=== PATIENT | female | born 1960 | race Caucasian/White ===

== ENCOUNTER 2025-04-17 18:22 | Inpatient (IN) | payer SELFPAY ==
[~2025-04-17] VITALS: Ht 154.9 cm; Wt 55.8 kg
[2025-04-17 18:24] VITALS: O2SAT 98
[2025-04-17] MEDS: SODIUM CHLORIDE 0.9% (SEPSIS BOLUS) IV ONE (19:48)
[2025-04-17 20:12] LABS: HEMATOCRIT. 43.5 % (36.0-48.0); HEMOGLOBIN. 14.6 g/dL (12.0-16.0); MEAN PLATELET VOLUME 9.2 fl (7.4-10.4); PLATELET 197 x1000/uL (130-400); RED BLOOD CELL COUNT 4.71 mill/uL (4.2-5.4); RED CELL DISTRIBUTION WIDTH 15.2 % (11.6-14.6)
[2025-04-17 20:27] LABS: CREATININE 1.0 mg/dL (0.6-1.0)
[2025-04-17 20:28] LABS: LYMPHOCYTES % MANUAL 3.0 % (20.0-60.0); MONOCYTES % MANUAL 4.0 % (2.0-8.0); NEUTROPHILS % MANUAL 93.0 % (45.0-75.0); PLATELET ESTIMATE NORMAL; TROPONIN I HIGH SENSITIVITY < 4 ng/L (3.0-34); UREA NITROGEN BLOOD 16 mg/dL (9-23)
[2025-04-17 20:29] LABS: ASPARTATE AMINOTRANSFERASE 85 IU/L (<34)
[2025-04-17 20:30] LABS: BILIRUBIN DIRECT 0.3 mg/dL (<=3.0); BILIRUBIN TOTAL 0.9 mg/dL (0.1-1.0); PROTEIN TOTAL 6.8 g/dL (6.0-8.3)
[2025-04-17 20:31] LABS: INR 1.0
[2025-04-17] MEDS: CEFTRIAXONE 1GM/50ML 50 ML IV ONE (20:37)
[2025-04-17] MEDS: ACETAMINOPHEN 500MG TABLET PO SCH (20:37)
[2025-04-17] MEDS: METHOCARBAMOL 500MG TABLET PO SCH (20:38)
[2025-04-17] MEDS: ONDANSETRON HCL 4MG/2ML INJ IV ONE (20:38)
[2025-04-17] MEDS: FAMOTIDINE 20MG/2ML VIAL IV ONE (20:38)
[2025-04-17] MEDS: IOHEXOL-350 100 ML BOTTLE ONE (22:53)
[2025-04-17] MEDS ORDERED: NOREPINEPHRINE 8MG/250ML PMX 250 ML IV PRN (23:00)
[2025-04-17] MEDS: NOREPINEPHRINE 8MG/250ML PMX 250 ML IV PRN (23:25)
[2025-04-18] VITALS (30 sets, daily range): BP systolic 55–151; BP diastolic 44–102; PULSE 76–114; RESP 16–36; TEMP 37.1–37.6; O2SAT 93–98
[2025-04-18 00:09] LABS: ASPARTATE AMINOTRANSFERASE 91 IU/L (<34); BILIRUBIN DIRECT 0.3 mg/dL (<=3.0); BILIRUBIN TOTAL 0.9 mg/dL (0.1-1.0); PROTEIN TOTAL 6.7 g/dL (6.0-8.3)
[2025-04-18] MEDS: SODIUM CHLORIDE 0.9% (SEPSIS BOLUS) IV ONE (00:20)
[2025-04-18 00:21] LABS: CLARITY URINE CLEAR (CLEAR); COLOR URINE YELLOW (YELLOW); GLUCOSE URINE NEGATIVE (NEGATIVE); KETONES URINE NEGATIVE (NEGATIVE); LEUKOCYTE ESTERASE URINE 2+ (NEGATIVE); NITRITE URINE NEGATIVE (NEGATIVE); OCCULT BLOOD URINE TRACE (NEGATIVE); PH URINE 5.5 (4.5-8.0); PROTEIN URINE NEGATIVE (NEGATIVE); SPECIFIC GRAVITY URINE 1.030 (1.005-1.030); UROBILINOGEN URINE 0.2 E.U./dL (0.2-1.0)
[2025-04-18] MEDS: PIPERACILLIN/TAZO 3.375G/50ML 50 ML IV ONE (00:21)
[2025-04-18 01:04] LABS: INR 1.1
[2025-04-18] MEDS: HYDROCODONE/ACETAMINOPHEN 10/325MG TABLET PO PRN (01:11)
[2025-04-18 01:33] LABS: BACTERIA URINE TRACE; SQUAMOUS EPITHELIAL CELL URINE 1+ /lpf (RARE/1+)
[2025-04-18] MEDS: VANCOMYCIN 1G PREMIX 200 ML IV ONE (05:25)
[2025-04-18] MEDS: VANCOMYCIN 1G PREMIX 200 ML IV NR (05:30)
[2025-04-18] MEDS: ACETAMINOPHEN 325MG TABLET PO ONE (06:03)
[2025-04-18] MEDS: ACETAMINOPHEN 500MG TABLET PO NR (06:09)
[2025-04-18] MEDS: MORPHINE SULFATE 4 MG/ML INJ (FOR IV/IM USE) IV NR (06:33)
[2025-04-18] MEDS ORDERED: NALOXONE HCL 0.4MG/ML VIAL IV PRN (10:15)
[2025-04-18] MEDS ORDERED: ACETAMINOPHEN 325MG TABLET PO PRN (10:30)
[2025-04-18] MEDS: MIDODRINE HCL 5MG TABLET PO SCH (10:43)
[2025-04-18 12:36] LABS: HEMATOCRIT. 42.5 % (36.0-48.0); HEMOGLOBIN. 13.9 g/dL (12.0-16.0); MEAN PLATELET VOLUME 9.7 fl (7.4-10.4); PLATELET 168 x1000/uL (130-400); RED BLOOD CELL COUNT 4.48 mill/uL (4.2-5.4); RED CELL DISTRIBUTION WIDTH 15.6 % (11.6-14.6)
[2025-04-18] MEDS ORDERED: NOREPINEPHRINE 8MG/250ML PMX 250 ML IV PRN (13:20)
[2025-04-18] MEDS: NOREPINEPHRINE 8MG/250ML PMX 250 ML IV PRN (13:24)
[2025-04-18 15:47] LABS: LYMPHOCYTES % MANUAL 10.0 % (20.0-60.0); MONOCYTES % MANUAL 5.0 % (2.0-8.0); NEUTROPHILS % MANUAL 85.0 % (45.0-75.0); PLATELET ESTIMATE NORMAL
[2025-04-18] MEDS: PIPERACILLIN/TAZO 3.375G/50ML 50 ML IV SCH (16:38)
[2025-04-18] MEDS: KETOROLAC 15MG/ML VIAL IV PRN (18:53)
[2025-04-18] MEDS: ONDANSETRON HCL 4MG/2ML INJ IV PRN (19:04)
[2025-04-19] VITALS (97 sets, daily range): BP systolic 58–195; BP diastolic 38–120; PULSE 75–118; RESP 12–28; TEMP 36.6–36.8; O2SAT 93–98
[2025-04-19] MEDS: SODIUM CHLORIDE 0.45% 1,000 ML IV SCH (00:04)
[2025-04-19 06:24] LABS: HEMATOCRIT. 39.9 % (36.0-48.0); HEMOGLOBIN. 13.1 g/dL (12.0-16.0); MEAN PLATELET VOLUME 9.6 fl (7.4-10.4); PLATELET 120 x1000/uL (130-400); RED BLOOD CELL COUNT 4.29 mill/uL (4.2-5.4); RED CELL DISTRIBUTION WIDTH 15.8 % (11.6-14.6)
[2025-04-19 06:33] LABS: CREATININE 1.2 mg/dL (0.6-1.0); UREA NITROGEN BLOOD 15.0 mg/dL (9-23)
[2025-04-19] MEDS ORDERED: LIDOCAINE HCL 1% 10 MG/ML 10ML VIAL ONE (07:09)
[2025-04-19] MEDS ORDERED: IOHEXOL-300 50 ML BOTTLE IV ONE (07:10)
[2025-04-19] MEDS ORDERED: BUPIVACAINE HCL/PF 0.5% (5MG/ML) 10ML ONE (07:22)
[2025-04-19] MEDS ORDERED: POLYMYXIN B SULFATE 500000 UNITS/VIAL ONE (07:22)
[2025-04-19] MEDS ORDERED: BUPIVACAINE HCL/PF 0.25% (2.5MG/ML) 10ML ONE (07:32)
[2025-04-19] MEDS: FENTANYL CITRATE/PF 50MCG/ML 2ML VIAL IV ONE (08:05)
[2025-04-19] MEDS ORDERED: FENTANYL CITRATE/PF 50MCG/ML 2ML VIAL ONE (08:09)
[2025-04-19] MEDS: ACETAMINOPHEN 325MG TABLET PO PRN (12:50)
[2025-04-19] MEDS: MIDODRINE HCL 5MG TABLET PO SCH (12:51)
[2025-04-19 17:04] LABS: BAND% 13.0 % (1.0-6.0); LYMPHOCYTES % MANUAL 4.0 % (20.0-60.0); MONOCYTES % MANUAL 5.0 % (2.0-8.0); NEUTROPHILS % MANUAL 78.0 % (45.0-75.0); PLATELET ESTIMATE DECREASED
[2025-04-20] VITALS (97 sets, daily range): BP systolic 63–158; BP diastolic 30–105; PULSE 56–100; RESP 12–29; TEMP 36.7–37.1; O2SAT 92–99
[2025-04-20 07:04] LABS: BASOPHILS % 0.1 % (0.0-2.0); EOSINOPHILS % 3.6 % (0.0-5.0); HEMATOCRIT. 36.4 % (36.0-48.0); HEMOGLOBIN. 12.0 g/dL (12.0-16.0); LYMPHOCYTES % 10.0 % (20.0-50.0); MEAN PLATELET VOLUME 10.4 fl (7.4-10.4); MONOCYTES % 3.3 % (2.0-8.0); NEUTROPHILS % 83.0 % (40.0-76.0); PLATELET 98 x1000/uL (130-400); RED BLOOD CELL COUNT 3.95 mill/uL (4.2-5.4); RED CELL DISTRIBUTION WIDTH 15.8 % (11.6-14.6)
[2025-04-20 07:21] LABS: CREATININE 0.9 mg/dL (0.6-1.0)
[2025-04-20 07:23] LABS: UREA NITROGEN BLOOD 13 mg/dL (9-23)
[2025-04-20] MEDS: MIDODRINE HCL 5MG TABLET PO SCH (13:28)
[2025-04-20] MEDS: CEFTRIAXONE 2GM/50ML 50 ML IV SCH (21:12)
[2025-04-21] VITALS (44 sets, daily range): BP systolic 89–141; BP diastolic 53–83; PULSE 62–96; RESP 12–26; TEMP 36.3–37.1; O2SAT 90–97
[2025-04-21 06:51] LABS: BASOPHILS % 0.2 % (0.0-2.0); EOSINOPHILS % 1.5 % (0.0-5.0); HEMATOCRIT. 35.4 % (36.0-48.0); HEMOGLOBIN. 11.8 g/dL (12.0-16.0); LYMPHOCYTES % 18.0 % (20.0-50.0); MEAN PLATELET VOLUME 10.2 fl (7.4-10.4); MONOCYTES % 5.7 % (2.0-8.0); NEUTROPHILS % 74.6 % (40.0-76.0); PLATELET 115 x1000/uL (130-400); RED BLOOD CELL COUNT 3.86 mill/uL (4.2-5.4); RED CELL DISTRIBUTION WIDTH 15.5 % (11.6-14.6)
[2025-04-21 06:59] LABS: CREATININE 0.7 mg/dL (0.6-1.0); UREA NITROGEN BLOOD 13 mg/dL (9-23)
[2025-04-21] MEDS: GUAIFENESIN 200MG/10ML SUGAR FREE UDC PO PRN (08:10)
[2025-04-21] MEDS: MIDODRINE HCL 5MG TABLET PO SCH (13:32)
[2025-04-22] VITALS: BP 132/74; PULSE 83; RESP 16; TEMP 36.9; O2SAT 96
[2025-04-22 04:00] VITALS: BP 116/58; PULSE 87; RESP 16; TEMP 37; O2SAT 97
[2025-04-22 07:42] LABS: HEMATOCRIT. 36.7 % (36.0-48.0); HEMOGLOBIN. 12.4 g/dL (12.0-16.0); MEAN PLATELET VOLUME 9.1 fl (7.4-10.4); PLATELET 138 x1000/uL (130-400); RED BLOOD CELL COUNT 4.05 mill/uL (4.2-5.4); RED CELL DISTRIBUTION WIDTH 15.3 % (11.6-14.6)
[2025-04-22 07:55] LABS: CREATININE 0.6 mg/dL (0.6-1.0)
[2025-04-22 07:56] LABS: UREA NITROGEN BLOOD 10 mg/dL (9-23)
[2025-04-22 08:00] VITALS: BP 134/51; PULSE 69; RESP 17; TEMP 36.4; O2SAT 96
[2025-04-22] MEDS: SODIUM CHLORIDE 0.45% 1,000 ML IV SCH (09:46)
[2025-04-22 12:00] VITALS: BP 125/56; PULSE 76; RESP 16; O2SAT 96
[2025-04-22 15:10] LABS: EOSINOPHILS % MANUAL 1.0 % (0.0-5.0); LYMPHOCYTES % MANUAL 30.0 % (20.0-60.0); MONOCYTES % MANUAL 8.0 % (2.0-8.0); NEUTROPHILS % MANUAL 61.0 % (45.0-75.0); PLATELET ESTIMATE NORMAL
[2025-04-22 16:00] VITALS: BP 128/55; PULSE 81; RESP 17; TEMP 36.6; O2SAT 95
[2025-04-22 20:00] VITALS: BP 111/57; PULSE 81; RESP 17; TEMP 36.7; O2SAT 95
[2025-04-23] VITALS: BP 154/68; PULSE 72; RESP 17; TEMP 36.3; O2SAT 93
[2025-04-23 04:00] VITALS: BP 115/68; PULSE 99; RESP 16; TEMP 36.4; O2SAT 97
[2025-04-23 07:59] LABS: CREATININE 0.6 mg/dL (0.6-1.0); UREA NITROGEN BLOOD 7 mg/dL (9-23)
[2025-04-23 08:00] VITALS: BP 150/63; PULSE 56; RESP 20; TEMP 36.3; O2SAT 96
[2025-04-23 08:31] LABS: HEMATOCRIT. 38.4 % (36.0-48.0); HEMOGLOBIN. 13.0 g/dL (12.0-16.0); MEAN PLATELET VOLUME 9.3 fl (7.4-10.4); PLATELET 189 x1000/uL (130-400); RED BLOOD CELL COUNT 4.22 mill/uL (4.2-5.4); RED CELL DISTRIBUTION WIDTH 15.1 % (11.6-14.6)
[2025-04-23] MEDS ORDERED: LEVO750T68 MT (10:49)
[2025-04-23 12:00] VITALS: BP 102/69; PULSE 88; RESP 20; TEMP 36.4; O2SAT 97
[2025-04-23] MEDS: POTASSIUM CHLORIDE 20MEQ TABLET SR PO NR (13:31)
[2025-04-23 16:00] VITALS: BP 159/111; PULSE 70; RESP 18; TEMP 36.3; O2SAT 97
[2025-04-23 17:06] LABS: BAND% 4.0 % (1.0-6.0); EOSINOPHILS % MANUAL 1.0 % (0.0-5.0); LYMPHOCYTES % MANUAL 29.0 % (20.0-60.0); MONOCYTES % MANUAL 15.0 % (2.0-8.0); NEUTROPHILS % MANUAL 51.0 % (45.0-75.0); PLATELET ESTIMATE NORMAL
[2025-04-23 17:50] VITALS: BP 159/111; PULSE 70; RESP 18; TEMP 97.4
== END 2025-04-23 18:54 | disposition home or self-care (01) | DRG 720 ==
LOC: ER 18:22 → CVICU 20:47 → EDBEDREQ 21:07 → EDBEDREQTM 21:07 → ENRESERV 21:16 → CANRESERV 21:16 → EDBEDREQSVC 23:03 → ENRESERV 04-18 08:20 → 5WST 04-21 14:11
PROVIDERS: ADMIT Internal Medicine; ATTEND Internal Medicine
PROC: 0T9430Z Drainage of Left Kidney Pelvis with Drainage Device, Percutaneous Approach (ICD-10-PCS; principal; 2025-04-19)
DX: A41.51 Sepsis due to Escherichia coli [E. coli] (principal); R65.21 Severe sepsis with septic shock; E87.20 Acidosis, unspecified; E87.0 Hyperosmolality and hypernatremia; N13.6 Pyonephrosis; I10 Essential (primary) hypertension; N17.9 Acute kidney failure, unspecified; N20.2 Calculus of kidney with calculus of ureter; B96.20 Unspecified Escherichia coli [E. coli] as the cause of diseases classified elsewhere; E87.6 Hypokalemia; Z55.6 Problems related to health literacy
CPT/HCPCS: 36415; 50432; 71045; 71275; 74176; 80048; 80076; 80320; 81003; 83605; 84145; 84484; 85025; 85379; 87077; 87186; 93005; 96365; 96375; 97162; 99152; 99153; 99291; A4606; C1729; C1769; J0665; J0696; J1308; J1885; J2003; J2270; J2405; J2543; J3010; J3373; J3490; L8514; Q9967; G0480; G0500